=== PATIENT | female | born 1955 | race Native Hawaiian/Other Pacific Islander ===

== ENCOUNTER 2017-03-12 18:46 | Emergency (ER) | payer SELFPAY ==
[~2017-03-12] VITALS: Ht 177.8 cm; Wt 80.0 kg
[2017-03-12 18:48] VITALS: BP 176/90; PULSE 78; RESP 25; TEMP 98.7; O2SAT 98
[2017-03-12 19:13] VITALS: BP 161/86; PULSE 75; RESP 13; TEMP 98.7; O2SAT 98
[2017-03-12] MEDS ORDERED: METF500 PO (19:13)
[2017-03-12] MEDS ORDERED: [UNRECOGNIZED DRUG - OTHER] PO (19:17)
[2017-03-12] MEDS ORDERED: ZOCO20TA PO (19:17)
[2017-03-12] MEDS ORDERED: SODIUM CHLOR 0.9% 1000 ML INJ 1,000 ML IV SCH (19:39)
[2017-03-12] MEDS ORDERED: LIDOCAINE VISCOUS 2% SOLN 15 ML UDC PO ONE (19:45)
[2017-03-12] MEDS ORDERED: SODIUM CHLORIDE 0.9% FLUSH 10 ML FLUSH IV FLUSH PRN (19:45)
[2017-03-12] MEDS ORDERED: ALUMINUM/MAGNESIUM/SIMETH 30 ML CUP PO ONE (19:45)
[2017-03-12] MEDS ORDERED: MORPHINE SULFATE 4 MG/ML INJ IV PUSH ONE (19:45)
[2017-03-12] MEDS ORDERED: ONDANSETRON HCL 4 MG/2 ML VIAL IVP ONE (19:45)
--- NOTE | 2017-03-12 19:45 | PD ---
HPI Chief Complaint: Abdominal Pain Time Seen by Provider: 19:35 Travel History International Travel<30 days: No Contact w/Intl Traveler<30days: No Traveled to known affect area: No History of Present Illness HPI 61-year-old German female process emergency Department with sudden onset right upper quadrant pain with nausea, heartburn, and vomiting since eating a fajita approximate 5 hours ago. Her ate the same food and has no symptoms. Patient denies fever, chills, urinary symptoms, diarrhea, or chest pain or shortness of breath. Pain is intense and rated as a 9 out of 10. Patient has never had abdominal surgeries prior to this. She is allergic to sulfa. PFSH Past Medical History Diabetes: Yes Patient Takes Glucophage: Yes Hypertension: Yes Past Surgical History Surgical History: No Previous Surgery Social History Alcohol Use: No Tobacco Use: No Substance Use: No Allergies-Medications (Allergen,Severity, Reaction): Coded Allergies: Sulfa (Sulfonamide Antibiotics) (Verified Allergy, Unknown, 03/12/17) Reported Meds & Prescriptions Reported Meds & Active Scripts Active Reported Zocor (Simvastatin) 20 Mg Tab 20 Mg PO DAILY [lipanthyl 145] 145 Mg PO DAILY Glucophage (Metformin HCl) 500 Mg Tab 500 Mg PO TIDPC Review of Systems Except as stated in HPI: all other systems reviewed are Neg General / Constitutional: No: Fever Eyes: No: Visual changes HENT: No: Headaches Cardiovascular: No: Chest Pain or Discomfort Respiratory: No: Shortness of Breath Gastrointestinal: Positive: Nausea, Vomiting, Abdominal Pain, Loss of Appetite , Other (heartburn) Genitourinary: No: Dysuria Musculoskeletal: No: Pain Skin: No Rash Neurologic: No: Weakness Psychiatric: No: Depression Endocrine: No: Polydipsia Hematologic/Lymphatic: No: Easy Bruising Physical Exam Narrative GENERAL: Patient is to moderate to severe distress. SKIN: Warm and dry. Normal color. Normal turgor. HEAD: Atraumatic. Normocephalic. EYES: Pupils equal and round. No scleral icterus. No injection or drainage. ENT: No nasal bleeding or discharge. Mucous membranes pink and moist. Pharynx is clear. Airway is patent. NECK: Trachea midline. Supple. CARDIOVASCULAR: Regular rate and rhythm. RESPIRATORY: No accessory muscle use. Clear to auscultation. Breath sounds equal bilaterally. GASTROINTESTINAL: Abdomen soft, moderate to severe tenderness in the right upper quadrant and epigastric region, nondistended. Bowel sounds are present but somewhat diminished. Hepatic and splenic margins not palpable. MUSCULOSKELETAL: Extremities without clubbing, cyanosis, or edema. No obvious deformities. NEUROLOGICAL: Awake and alert. No obvious cranial nerve deficits. Motor grossly within normal limits. Five out of 5 muscle strength in the arms and legs. Normal speech. PSYCHIATRIC: Appropriate mood and affect; insight and judgment normal. Data Data Last Documented VS Vital Signs Date Time Temp Pulse Resp B/P (MAP) Pulse Ox O2 Delivery O2 Flow Rate FiO2 03/12/17 19:13 98.7 75 13 161/86 (111) 98 Room Air Orders Orders Complete Blood Count With Diff (03/12/17 19:39) Comprehensive Metabolic Panel (03/12/17 19:39) Lipase (03/12/17 19:39) Lactic Acid (03/12/17 19:39) Prothrombin Time / Inr (Pt) (03/12/17 19:39) Act Partial Throm Time (Ptt) (03/12/17 19:39) Urinalysis - C+S If Indicated (03/12/17 19:39) Ct Abd/Pel W Iv Contrast(Rout) (03/12/17 19:39) Iv Access Insert/Monitor (03/12/17 19:39) Ecg Monitoring (03/12/17 19:39) Oximetry (03/12/17 19:39) Morphine Inj (Morphine Inj) (03/12/17 19:45) Ondansetron Inj (Zofran Inj) (03/12/17 19:45) Sodium Chlor 0.9% 1000 Ml Inj (Ns 1000 M (03/12/17 19:39) Sodium Chloride 0.9% Flush (Ns Flush) (03/12/17 19:45) Electrocardiogram (03/12/17 19:39) Al-Mag Hy-Si 40-40-4 Mg/Ml Liq (Mag-Al P (03/12/17 19:45) Lidocaine 2% Viscous (Xylocaine 2% Visco (03/12/17 19:45) Iohexol 350 Inj (Omnipaque 350 Inj) (03/12/17 21:03) Pantoprazole Inj (Protonix Inj) (03/12/17 21:15) Sucralfate Liq (Carafate Liq) (03/12/17 21:15) Sodium Chlor 0.9% 1000 Ml Inj (Ns 1000 M (03/12/17 21:45) Troponin I (03/12/17 22:19) Lactic Acid (03/12/17 22:19) Ckmb (Isoenzyme) Profile (03/12/17 22:19) CKMB (03/12/17 22:30) CKMB% (03/12/17 22:30) Us Abdomen Gallbladder (03/12/17 ) Hydromorphone Pf Inj (Dilaudid Pf Inj) (03/12/17 23:30) Labs Laboratory Tests Test 03/12/17 19:14 03/12/17 22:25 03/12/17 22:30 White Blood Count 9.5 TH/MM3 Red Blood Count 4.52 MIL/MM3 Hemoglobin 13.5 GM/DL Hematocrit 40.8 % Mean Corpuscular Volume 90.3 FL Mean Corpuscular Hemoglobin 29.9 PG Mean Corpuscular Hemoglobin Concent 33.1 % Red Cell Distribution Width 12.5 % Platelet Count 351 TH/MM3 Mean Platelet Volume 7.9 FL Neutrophils (%) (Auto) 70.0 % Lymphocytes (%) (Auto) 24.3 % Monocytes (%) (Auto) 4.8 % Eosinophils (%) (Auto) 0.4 % Basophils (%) (Auto) 0.5 % Neutrophils # (Auto) 6.7 TH/MM3 Lymphocytes # (Auto) 2.3 TH/MM3 Monocytes # (Auto) 0.5 TH/MM3 Eosinophils # (Auto) 0.0 TH/MM3 Basophils # (Auto) 0.1 TH/MM3 CBC Comment DIFF FINAL Differential Comment Prothrombin Time 10.9 SEC Prothromb Time International Ratio 1.0 RATIO Activated Partial Thromboplast Time 24.8 SEC Blood Urea Nitrogen 18 MG/DL Creatinine 1.00 MG/DL Random Glucose 147 MG/DL Total Protein 7.7 GM/DL Albumin 4.4 GM/DL Calcium Level 10.1 MG/DL Alkaline Phosphatase 59 U/L Aspartate Amino Transf (AST/SGOT) 34 U/L Alanine Aminotransferase (ALT/SGPT) 54 U/L Total Bilirubin 0.5 MG/DL Sodium Level 134 MEQ/L Potassium Level 3.9 MEQ/L Chloride Level 99 MEQ/L Carbon Dioxide Level 22.8 MEQ/L Anion Gap 12 MEQ/L Estimat Glomerular Filtration Rate 57 ML/MIN Lactic Acid Level 2.8 mmol/L 3.0 mmol/L Lipase 194 U/L Urine Color YELLOW Urine Turbidity CLEAR Urine pH 8.5 Urine Specific [place] GREATER THAN 1.035 Urine Protein NEG mg/dL Urine Glucose (UA) NEG mg/dL Urine Ketones NEG mg/dL Urine Occult Blood SMALL Urine Nitrite NEG Urine Bilirubin NEGATIVE Urine Urobilinogen 0.2 MG/DL Urine Leukocyte Esterase TRACE Urine RBC 0-3 /hpf Urine WBC 0-2 /hpf Urine Squamous Epithelial Cells 0-5 /hpf Urine Bacteria RARE /hpf Microscopic Urinalysis Comment CULT NOT INDICATED Total Creatine Kinase 114 U/L Troponin I LESS THAN 0.02 NG/ML MDM Medical Decision Making Medical Screen Exam Complete: Yes Emergency Medical Condition: Yes Differential Diagnosis Gastritis. Heartburn. Gallbladder disease. Obstructive Hepatitis. Pancreatitis. Nausea vomiting. Narrative Course Patient is medically stable at time of exam although obviously uncomfortable. Labs ordered including CBC, CMP, lactic acid, lipase, urinalysis. Chest x-ray is ordered as well as abdominal pelvis CT with IV contrast. EKG is within normal limits. IV is established and patient is given the thousand and also normal saline bolus as well as 4 mg Zofran IV and 4 mg morphine IV. GI cocktail was ordered once the patient has less nausea. CBC is unremarkable. Coagulation studies are normal. CMP relevant for sodium 134, GFR 57, random glucose 147, ALT is 54. Lipase is normal 194. Lactic acid is elevated at 2.8. CT shows fatty liver but otherwise no acute process per radiologist. She states her pain improved at first with the GI cocktail but then worsened again after about an hour. Patient is given 4 mg morphine IV as well as 1 g sulfate by mouth. She is given 1000 mL was normal saline bolus. Urinalysis shows Patient was discussed with Dr. Avilez, and she recommended adding a troponin, CK -MB to rule out cardiac syndrome patient is diabetic and hyperlipidemic. A second lactic acid is ordered as well. Cardiac enzymes are negative. Second lactic acid is actually elevated to 3.0. Patient is discussed with and seen with Dr. Avilez who assumes care at 2300 hrs. Gallbladder ultrasound is ordered and patient is given Dilaudid 1 mg IV. Final disposition will be determined by Dr. Avilez. Condition: Stable Mervin Wolfe Mar 12, 2017 19:45
[2017-03-12 20:54] LABS: AUTOMATED NEUTROPHIL # 6.7 TH/MM3 (1.8-7.7); BASOPHIL # 0.1 TH/MM3 (0-0.2); BASOPHIL % 0.5 % (0.0-2.0); EOSINOPHIL % 0.4 % (0.0-4.0); HEMATOCRIT 40.8 % (35.0-46.0); HEMO FLAGS DIFF FINAL; LYMPH % 24.3 % (9.0-44.0); LYMPHOCYTE # 2.3 TH/MM3 (1.0-4.8); MEAN CELL VOLUME 90.3 FL (80.0-100.0); MEAN CORPUSCULAR HEMOGLOBIN 29.9 PG (27.0-34.0); MEAN CORPUSCULAR HGB CONC 33.1 % (32.0-36.0); MONO % 4.8 % (0.0-8.0); PLATELET COUNT 351 TH/MM3 (150-450); RED BLOOD COUNT 4.52 MIL/MM3 (4.00-5.30); RED CELL DISTRIBUTION WIDTH 12.5 % (11.6-17.2); WHITE BLOOD COUNT 9.5 TH/MM3 (4.0-11.0)
[2017-03-12] MEDS ORDERED: IOHEXOL 350 MG/ML 10 ML VIAL (for RAD DIAG) IVCONTRAST ONE (21:03)
[2017-03-12] MEDS ORDERED: PANTOPRAZOLE SODIUM 40 MG VIAL IV PUSH ONE (21:15)
[2017-03-12] MEDS ORDERED: SUCRALFATE 1 GM/10 ML CUP PO ONE (21:15)
[2017-03-12 21:18] LABS: APTT (PATIENT) 24.8 SEC (24.3-30.1); PROTHROMBIN TIME - PATIENT 10.9 SEC (9.8-11.6)
[2017-03-12 21:19] LABS: ANION GAP 12 MEQ/L (5-15); AST (GOT) 34 U/L (15-37); BICARBONATE 22.8 MEQ/L (21.0-32.0); BLOOD UREA NITROGEN 18 MG/DL (7-18); CHLORIDE 99 MEQ/L (98-107); GLOMERULAR FILTRATION RATE 57 ML/MIN (>89); POTASSIUM 3.9 MEQ/L (3.5-5.1); SODIUM (NA) 134 MEQ/L (136-145)
[2017-03-12 21:20] LABS: ALT (GPT) 54 U/L (10-53)
[2017-03-12 21:22] LABS: ALKALINE PHOSPHATASE 59 U/L (45-117); TOTAL BILIRUBIN ADULT 0.5 MG/DL (0.2-1.0)
--- NOTE | 2017-03-12 21:22 | RADRPT ---
EXAM DATE/TIME: 03/12/2017 20:53 [facility] COMPARISON: No previous studies available for comparison. INDICATIONS : Right upper quadrant pain with nausea and vomiting. IV CONTRAST: 95 cc Omnipaque 350 (iohexol) IV ORAL CONTRAST: No oral contrast ingested. RADIATION DOSE: 11.08 CTDIvol (mGy) MEDICAL HISTORY : Hypertension. Diabetes mellitus type 2. SURGICAL HISTORY : None. ENCOUNTER: Initial ACUITY: 1 day PAIN SCALE: 8/10 LOCATION: Right upper quadrant TECHNIQUE: Volumetric scanning of the abdomen and pelvis was performed. Using automated exposure control and ad justment of the mA and/or kV according to patient size, radiation dose was kept as low as reasonably achievable to obtain optimal diagnostic quality images. DICOM format image data is available electro nically for review and comparison. FINDINGS: There is parenchymal scarring bilaterally. There is decreased density of the liver with respect to th e spleen compatible with fatty infiltration. The spleen is unremarkable. The gallbladder and pancreas are unremarkable. No intrahepatic or extrahepatic ductal dilatation is seen. The adrenal glands and kidneys appear normal bilaterally. No hydronephrosis or mass lesions are identified. Examination of the pelvis demonstrates no evidence of free fluid or pelvic mass. No abnormally enlarg ed inguinal or retroperitoneal lymph nodes are present. The bladder is unremarkable. CONCLUSION: 1. No evidence of acute abdominal or pelvic process. No masses are identified. 2. Hypodense liver compatible with fatty infiltration or hepatocellular disease. Vignesh Hall MD on March 12, 2017 at 21:19 Board Certified Radiologist. This report was verified electronically.
[2017-03-12] MEDS ORDERED: SODIUM CHLOR 0.9% 1000 ML INJ 1,000 ML IV ONE (21:45)
[2017-03-12 22:58] LABS: GLUCOSE,URINE NEG (NEG); PH, URINE 8.5 (5.0-8.5); URINE COLOR YELLOW (YELLW/STRAW)
[2017-03-12 22:59] LABS: BACTERIA, URINE RARE /hpf; BLOOD, URINE SMALL (NEG); COMMENT (UR) CULT NOT INDICATED; CULTURE IF INDICATED CULT NOT INDICATED; KETONE, URINE NEG (NEG); NITRITE,URINE NEG (NEG); RBC, URINE 0-3 /hpf (0-3); SQUAMOUS EPITHELIAL CELL URINE 0-5 /hpf (0-5); WBC, URINE 0-2 /hpf (0-5)
[2017-03-12 23:14] LABS: CREATINE KINASE 114 U/L (26-192)
--- NOTE | 2017-03-12 23:25 | PD ---
Physical Exam Date Seen by Provider: Mar 12, 2017 Time Seen by Provider: 23:23 Narrative GENERAL: Well-developed well-nourished female in obvious discomfort SKIN: Warm and dry. HEAD: Normocephalic. EYES: No scleral icterus. No injection or drainage. NECK: Supple, trachea midline. No JVD or lymphadenopathy. CARDIOVASCULAR: Regular rate and rhythm without murmurs, gallops, or rubs. RESPIRATORY: Breath sounds equal bilaterally. No accessory muscle use. GASTROINTESTINAL: Abdomen soft, L epigastric and right upper quadrant tenderness to direct palpation with voluntary guarding, nondistended. MUSCULOSKELETAL: No cyanosis, or edema. BACK: Nontender without obvious deformity. No CVA tenderness. Data Data Last Documented VS Vital Signs Date Time Temp Pulse Resp B/P (MAP) Pulse Ox O2 Delivery O2 Flow Rate FiO2 03/13/17 02:00 88 16 122/64 (83) 97 Room Air 03/12/17 19:13 98.7 Orders Orders Complete Blood Count With Diff (03/12/17 19:39) Comprehensive Metabolic Panel (03/12/17 19:39) Lipase (03/12/17 19:39) Lactic Acid (03/12/17 19:39) Prothrombin Time / Inr (Pt) (03/12/17 19:39) Act Partial Throm Time (Ptt) (03/12/17 19:39) Urinalysis - C+S If Indicated (03/12/17 19:39) Ct Abd/Pel W Iv Contrast(Rout) (03/12/17 19:39) Iv Access Insert/Monitor (03/12/17 19:39) Ecg Monitoring (03/12/17 19:39) Oximetry (03/12/17 19:39) Morphine Inj (Morphine Inj) (03/12/17 19:45) Ondansetron Inj (Zofran Inj) (03/12/17 19:45) Sodium Chlor 0.9% 1000 Ml Inj (Ns 1000 M (03/12/17 19:39) Sodium Chloride 0.9% Flush (Ns Flush) (03/12/17 19:45) Electrocardiogram (03/12/17 19:39) Al-Mag Hy-Si 40-40-4 Mg/Ml Liq (Mag-Al P (03/12/17 19:45) Lidocaine 2% Viscous (Xylocaine 2% Visco (03/12/17 19:45) Iohexol 350 Inj (Omnipaque 350 Inj) (03/12/17 21:03) Pantoprazole Inj (Protonix Inj) (03/12/17 21:15) Sucralfate Liq (Carafate Liq) (03/12/17 21:15) Sodium Chlor 0.9% 1000 Ml Inj (Ns 1000 M (03/12/17 21:45) Troponin I (03/12/17 22:19) Lactic Acid (03/12/17 22:19) Ckmb (Isoenzyme) Profile (03/12/17 22:19) CKMB (03/12/17 22:30) CKMB% (03/12/17 22:30) Us Abdomen Gallbladder (03/12/17 ) Hydromorphone Pf Inj (Dilaudid Pf Inj) (03/12/17 23:30) Sodium Chlorid 0.9% 500 Ml Inj (Ns 500 M (03/13/17 02:30) Labs Laboratory Tests Test 03/12/17 19:14 03/12/17 22:25 03/12/17 22:30 White Blood Count 9.5 TH/MM3 Red Blood Count 4.52 MIL/MM3 Hemoglobin 13.5 GM/DL Hematocrit 40.8 % Mean Corpuscular Volume 90.3 FL Mean Corpuscular Hemoglobin 29.9 PG Mean Corpuscular Hemoglobin Concent 33.1 % Red Cell Distribution Width 12.5 % Platelet Count 351 TH/MM3 Mean Platelet Volume 7.9 FL Neutrophils (%) (Auto) 70.0 % Lymphocytes (%) (Auto) 24.3 % Monocytes (%) (Auto) 4.8 % Eosinophils (%) (Auto) 0.4 % Basophils (%) (Auto) 0.5 % Neutrophils # (Auto) 6.7 TH/MM3 Lymphocytes # (Auto) 2.3 TH/MM3 Monocytes # (Auto) 0.5 TH/MM3 Eosinophils # (Auto) 0.0 TH/MM3 Basophils # (Auto) 0.1 TH/MM3 CBC Comment DIFF FINAL Differential Comment Prothrombin Time 10.9 SEC Prothromb Time International Ratio 1.0 RATIO Activated Partial Thromboplast Time 24.8 SEC Blood Urea Nitrogen 18 MG/DL Creatinine 1.00 MG/DL Random Glucose 147 MG/DL Total Protein 7.7 GM/DL Albumin 4.4 GM/DL Calcium Level 10.1 MG/DL Alkaline Phosphatase 59 U/L Aspartate Amino Transf (AST/SGOT) 34 U/L Alanine Aminotransferase (ALT/SGPT) 54 U/L Total Bilirubin 0.5 MG/DL Sodium Level 134 MEQ/L Potassium Level 3.9 MEQ/L Chloride Level 99 MEQ/L Carbon Dioxide Level 22.8 MEQ/L Anion Gap 12 MEQ/L Estimat Glomerular Filtration Rate 57 ML/MIN Lactic Acid Level 2.8 mmol/L 3.0 mmol/L Lipase 194 U/L Urine Color YELLOW Urine Turbidity CLEAR Urine pH 8.5 Urine Specific [place] GREATER THAN 1.035 Urine Protein NEG mg/dL Urine Glucose (UA) NEG mg/dL Urine Ketones NEG mg/dL Urine Occult Blood SMALL Urine Nitrite NEG Urine Bilirubin NEGATIVE Urine Urobilinogen 0.2 MG/DL Urine Leukocyte Esterase TRACE Urine RBC 0-3 /hpf Urine WBC 0-2 /hpf Urine Squamous Epithelial Cells 0-5 /hpf Urine Bacteria RARE /hpf Microscopic Urinalysis Comment CULT NOT INDICATED Total Creatine Kinase 114 U/L Creatine Kinase MB 1.5 NG/ML Troponin I LESS THAN 0.02 NG/ML [facility] Medical Record Reviewed: Yes Supervised Visit with AGA: Yes Interpretation(s) CBC & BMP Diagram 03/12/17 19:14 Total Protein 7.7, Albumin 4.4, Calcium Level 10.1, Alkaline Phosphatase 59, Aspartate Amino Transf (AST/SGOT) 34, Alanine Aminotransferase (ALT/SGPT) 54 H, Total Bilirubin 0.5 Vital Signs Date Time Temp Pulse Resp B/P (MAP) Pulse Ox O2 Delivery O2 Flow Rate FiO2 03/13/17 02:00 88 16 122/64 (83) 97 Room Air 03/12/17 19:13 98.7 75 13 161/86 (111) 98 Room Air 03/12/17 18:48 98.7 78 25 176/90 (118) 98 Last Impressions Abdomen/Pelvis CT 03/12/17 193 Signed Impressions: Service Date/Time: Sunday, March 12, 2017 20:53 - CONCLUSION: 1. No evidence of acute abdominal or pelvic process. No masses are identified. 2. Hypodense liver compatible with fatty infiltration or hepatocellular disease. Vignesh Hall MD Gall Bladder Ultrasound 03/12/17 0000 Signed Impressions: Service Date/Time: Sunday, March 12, 2017 23:52 - CONCLUSION: Hepatic steatosis with likely focal sparing adjacent to gallbladder fossa. No gallstones. Som Abraham MD Lactic acid: 2.8; repeat LA: 3.0 Differential Diagnosis Vital Signs Date Time Temp Pulse Resp B/P (MAP) Pulse Ox O2 Delivery O2 Flow Rate FiO2 03/12/17 19:13 98.7 75 13 161/86 (111) 98 Room Air 03/12/17 18:48 98.7 78 25 176/90 (118) 98 CBC & BMP Diagram 03/12/17 19:14 Total Protein 7.7, Albumin 4.4, Calcium Level 10.1, Alkaline Phosphatase 59, Aspartate Amino Transf (AST/SGOT) 34, Alanine Aminotransferase (ALT/SGPT) 54 H, Total Bilirubin 0.5 Abdominal pain, biliary colic, cholecystitis, pancreatitis, gastritis, peptic ulcer disease, esophageal spasm, ACS, NC Narrative Course Patient with ongoing abdominal pain after morphine and GI cocktail EKG shows no acute injury pattern change cardiac enzymes are normal range total white cell count with automated differential values in normal limits lipase and LFT values are within normal range patient with reproducible abdominal pain patient will have ultrasound of gallbladder for further assessment of right upper quadrant abdominal pain and a one-time dose of Dilaudid 0.5 mg IV Ultrasound shows no acute process Troponin I less than 0.02, not elevated Lactic acid repeat is actually increasing to 3.0 from 2.8; discussed with patient observation admission for trending lactic acid and bowel rest ongoing IV fluid hydration repeat lactic acid and possibly repeat cardiac enzymes patient states she is not willing to stay therefore patient will sign out AGAINST MEDICAL ADVICE and is encouraged to return in 3-6 hours or sooner at least to have repeat lactic acid performed to further evaluate the current upper trend of her lactic acid although vital signs is staying stable and she remains nontender and a symptomatic at this time. Patient is encouraged to follow clear liquid diet. Patient is encouraged to monitor temperature for fever. Patient provided prescription for Zofran for nausea. Patient and spouse indicate that they have understanding and recommendations and need to return to the emergency department even though they have decided not to stay for observation at this time and are leaving AGAINST MEDICAL ADVICE. Diagnosis Primary Impression: Abdominal pain Patient Instructions: Narcotic given in the ED, General Instructions Additional Instruction: Do not take metformin until after 03/16/17 due to receiving IV contrast 03/13/17 Return to the emergency department for recheck as discussed in detail zofran as prescribed for nausea or vomiting Increase fluid hydration following clear liquid diet for next 6-12 hours Monitor temperature for fever 100.4F or greater Med/Other Pt SpecificInfo: Prescription(s) given Scripts Ondansetron Odt (Zofran Odt) 4 Mg Tab 4 MG SL Q6HR Y for Nausea/Vomiting, #10 TAB 0 Refills Prov: Ethel Avilez MD 03/13/17 Disposition: 07 AGAINST MEDICAL ADVICE Condition: Stable Ethel Avilez MD Mar 12, 2017 23:24
[2017-03-12 23:26] LABS: CKMB 1.5 NG/ML (0.5-3.6)
[2017-03-12] MEDS ORDERED: HYDROmorphone HCL PF 1 MG/ML VIAL IV PUSH ONE (23:30)
--- NOTE | 2017-03-13 01:21 | RADRPT ---
EXAM DATE/TIME: 03/12/2017 23:52 [facility] COMPARISON: No previous studies available for comparison. INDICATIONS : Right upper quadrant pain. MEDICAL HISTORY : Hypertension. Diabetes. SURGICAL HISTORY : None. ENCOUNTER: Initial ACUITY: 3 days PAIN SCORE: 6/10 LOCATION: Right upper quadrant MEASUREMENTS: LIVER: 20.9 cm length COMMON DUCT: 5 mm RIGHT KIDNEY: 11.2 x 4.1 x 3.4 cm FINDINGS: LIVER: Diffusely increased echogenicity suggesting steatosis. Small focus of relatively diminished echogenic ity adjacent to gallbladder fossa that may be focal sparing. No evidence of biliary ductal dilatation COMMON DUCT: No intraluminal mass or stone visualized. GALLBLADDER: Contains no stones, demonstrates no wall thickening or pericholecystic fluid. PANCREAS: The visualized portions are within normal limits. RIGHT KIDNEY: No evidence of hydronephrosis, stone, or mass. CONCLUSION: Hepatic steatosis with likely focal sparing adjacent to gallbladder fossa. No gallstones. Som Abraham MD on March 13, 2017 at 0:57 Board Certified Radiologist. This report was verified electronically.
[2017-03-13 02:00] VITALS: BP 122/64; PULSE 88; RESP 16; O2SAT 97
[2017-03-13] MEDS ORDERED: SODIUM CHLORID 0.9% 500 ML INJ 500 ML IV ONE (02:30)
[2017-03-13] MEDS ORDERED: ZOFR4TAB3 SL (03:20)
--- NOTE | 2017-03-13 09:55 | EKG ---
Date Performed: 03/12/2017 Time Performed: 20:40:07 PTAGE: 61 years EKG: Sinus rhythm NORMAL ECG NO PREVIOUS TRACING DOCTOR: Vignesh Aguilar Interpretating Date/Time 03/13/2017 09:53:04
== END 2017-03-13 03:50 | disposition left against medical advice (07) ==
LOC: NEPC 18:46
DX: R10.11 Right upper quadrant pain (principal); Z53.21 Procedure and treatment not carried out due to patient leaving prior to being seen by health care provider; R10.13 Epigastric pain; R11.2 Nausea with vomiting, unspecified; E11.9 Type 2 diabetes mellitus without complications; I10 Essential (primary) hypertension
CPT/HCPCS: 74177; 76705; 80053; 81001; 82550; 82552; 83605; 83690; 84484; 85025; 85610; 85730; 93005; 96361; 96374; 96375; 99285; C9113; J1170; J2270; J2405; J7030; J7040; Q9967